=== PATIENT | female | born 1970 | race Caucasian/White ===

== ENCOUNTER → 2017-06-18 | Outpatient (CLI) | payer BC ==
[2015-03-17 09:03] VITALS: BP 104/67
--- NOTE | 2017-06-19 06:03 | RAD ---
Examination: Thoracic spine, AP and lateral views History: Pain in neck and shoulder Findings: Minimal scoliosis. No evidence for fracture, pedicle erosion or paraspinal soft tissue defo rmity. Disc spaces are preserved. Impression: No acute or significant abnormality demonstrated. Reported By:
--- NOTE | 2017-06-19 06:05 | RAD ---
Examination: Cervical spine, five views History: Pain in neck and left shoulder Findings: There is slight degenerative disc narrowing and osteophyte formation at levels below C4. Al ignment of vertebrae is normal. No fracture or bone destruction identified. The odontoid is midline a nd intact. There is slight osteophyte narrowing of the C6-7 foramina. Impression: Mild multilevel degenerative disc disease and spondylosis. Slight degenerative narrowing of C6-7 foramina. No acute component identified. Reported By:
== END ==
LOC: RAD 17:14
PROVIDERS: ATTEND Nurse Practitioner
DX: M54.12 Radiculopathy, cervical region (principal)
CPT/HCPCS: 72050; 72072

== ENCOUNTER 2017-08-05 19:47 | Emergency (ER) | payer BC ==
[2017-08-05 20:01] VITALS: BMI 24.9
--- NOTE | 2017-08-05 21:39 | DR.GENAD ---
HPI - PCP Primary Care Physician: bettina - HPI Comment HPI Comment: PATIENT ALSO HAVE HEADACHE AND POST NASAL DRAINAGE. GETTING WORSE. MEDS TAKING SO FAR NOT HELPING. FEEL WEAK AND DRAIN OF ENERGY. - Complaint/Symptoms Chief Complaint Doctors Comments: COUGH, COLD CONGESTION WITH FEVER TIME ONE WEEK. Chief Complaint:: cough cold congestion Self Treatment fo Chief Complaint: mucinex albuterol q 4 hrs - Nurses notes reviewed Nurses Notes Review: Yes - Source History Provided: Patient - Mode of Arrival Mode of Arrival: Ambulatory - Timing Onset of Chief Complaint: 07/29/17 Came on: Suddenly - Duration Duration: Constant Duration: Days - Severity Severity: Moderate PMH - PMH Past Medical History: Yes Past Medical History: COPD Past Surgical History: Yes Surgical History: , Cholecystectomy, Hysterectomy - Family History History of Family Medical Conditions: Yes Family Medical History: Diabetes Mellitus, Cancer, Coronary Artery Disease - Social History Does patient currently use any type of tobacco product: No Have you used tobacco products in the last 12 months: No Type of Tobacco Use: Cigarettes Does any household member use tobacco: Yes Alcohol Use: None Do you use any recreational Drugs:: No Lives With: Family Lives Where: Home - infectious screening In the last 2 months have you had wt loss of >10#?: NO Have you had fever, night sweats or hemotysis?: No Have you traveled outside the country in the last 6 months?: No Isolation: Standard ROS - Review of Systems Constitutional: Chills, Fever, Weakness, Fatigue Eyes: No Symptoms Reported. negative: Eye Pain ENTM: Nose Congestion. negative: Nose Discharge Respiratoy: Wheezing. negative: Short of Breath Cardiovascular: No Symptoms Reported Gastrointestinal/Abdominal: Abdominal Pain, Constipation, Diarrhea, Nausea, Vomiting Genitourinary: No Symptoms Reported Neurological: Headache Musculoskeletal: Back Pain, Muscle Pain, Chest wall Integumentary: No Symptoms Reported Hematologic/Lymphatic: Easy Bleeding Endocrine: No Symptoms Reported All Other Systems: Reviewed and Negative PE - Vital Signs Vitals: Temperature 98.4 F Pulse Rate [Right Brachial] 72 Pulse Rate 71 Respiratory Rate 18 Blood Pressure [Right Arm] 112/72 Blood Pressure 120/58 O2 Sat by Pulse Oximetry 100 - General Limitations: No Limitations General Appearance: Alert - Head Head Exam: Normal Inspection ( ) - Eyes Eye exam: PERRL, EOMI. negative: Scleral Icterus, Conjunctival Injection - ENT ENT Exam: Normal External Ear Exam. negative: Normal Oropharynx (THROAT RED.) , TM's Normal Bilaterally (TM BULGING) External Ear Exam: Normal External Inspection TM/Canal Exam: Bilateral Bulging Nose Exam: Normal Nose Exam Mouth Exam: Normal Inspection Throat Exam: Tonsillar Erythema - Neck Neck Exam: Trachea Midline - Chest Chest Inspection: Symmetric Chest Wall Rise - Respiratory Respiratory Exam: Normal Lung Sounds Bilat Respiratory Exam: Bilateral Rhonchi, Lower Rhonchi - Cardiovascular Cardiovascular Exam: Regular Rate, Normal Rhythm, Normal Heart Sounds - Abdominal Exam Abdominal Exam: Normal Bowel Sounds, Soft. negative: Tenderness - Extremities Extremities Exam: Normal Inspection - Back Back Exam: Normal Inspection - Neurologic Neurological Exam: Alert, Oriented X3 - Psychiatric Psychiatric Exam: Normal Affect, Normal Mood - Skin Skin Exam: Normal Color MDM - Differential Diagnosis Differential Diagnosis: BRONCHITIS, SINUSITIS, PNEUMONIA Course - Treatment Treatment: IM MEDS IN ED. SEE ORDERS. - Reevaluation 1st: Improved - Education/Counseling Education/Counseling: Patient, Education Educated On: Treatment, Diagnosis, Needs for Follow Up ROR - Labs Reviewed Laboratory Results Reviewed?: Yes Laboratory: Influenza Type A (PCR) Negative (NEGATIVE) 08/05/17 22:15 Influenza Type B (PCR) Negative (NEGATIVE) 08/05/17 22:15 Streptococcus Screen Negative (NEGATIVE) 08/05/17 22:38 - XRAY XRAY Interpreted by: Radiologist XRAY Findings: REPORT DISCUSS WITH PATIENT. - Diagnosis Discharge Problem: Bronchitis Sinusitis Qualifiers: Sinusitis location: unspecified location Chronicity: acute Recurrence: not specified as recurrent Qualified Code(s): J01.90 - Acute sinusitis, unspecified - Discharge Plan Disposition: 01 HOME, SELF-CARE Condition: Stable Prescriptions: Acetaminophen with Codeine [Tylenol/Codeine #3 300-30 mg] 1 tab PO Q8H PRN #15 tab PRN Reason: Pain Amoxicillin [Amoxil 875 mg] 875 mg PO Q12H #20 tab Cetirizine HCl [Zyrtec Tab 10 mg] 10 mg PO DAILY #30 tab - Follow ups/Referrals Follow ups/Referrals: Bettina Barreto [Primary Care Provider] - 3 days - Instructions Instructions: Sinusitis, Adult, [id number], Acute Bronchitis, [id number] Additional Instructions: RETURN TO ED IF WORSE.
--- NOTE | 2017-08-05 21:45 | RAD ---
CHEST RADIOGRAPHS PA AND LATERAL VIEWS CLINICAL HISTORY: 47-year-old female with cough. COMPARISON: Chest radiographs 08/21/2016. FINDINGS: The cardiopericardial silhouette is normal. There is no focal consolidation, pleural effus ion or pneumothorax. The lungs are well inflated. Pulmonary vascularity is normal. Imaged osseous str uctures are intact. Soft tissues are unremarkable. IMPRESSION: No acute cardiopulmonary process. Reported By:
[2017-08-05] MEDS ORDERED: ROCEPHIN VIAL 1 GM IM ONE (22:46)
[2017-08-05] MEDS ORDERED: TORADOL 60 MG VIAL IM ONE (22:47)
[2017-08-05] MEDS ORDERED: TORADOL 60 MG VIAL ONE (23:02)
[2017-08-05] MEDS ORDERED: ROCEPHIN VIAL 1 GM ONE (23:02)
[2017-08-05] MEDS ORDERED: XYLOCAINE 1 % (PLAIN) ONE (23:03)
[2017-08-05 23:37] VITALS: BP 112/72
== END 2017-08-05 23:37 | disposition home or self-care (01) ==
LOC: ER 20:05
DX: J40 Bronchitis, not specified as acute or chronic (principal); J01.80 Other acute sinusitis
CPT/HCPCS: 71046; 87070; 87502; 87880; 96372; 99282; 99283; J0696; J1885; J2001

== ENCOUNTER → 2017-08-09 | Outpatient (CLI) | payer BC ==
[2017-08-05 23:37] VITALS: BP 112/72
== END ==
LOC: LAB 09:49
PROVIDERS: ATTEND Psychiatry & Neurology Neurology
DX: J32.9 Chronic sinusitis, unspecified (principal)
CPT/HCPCS: 87070; 87205

== ENCOUNTER → 2017-08-20 | Outpatient (CLI) | payer BC ==
[2017-08-05 23:37] VITALS: BP 112/72
--- NOTE | 2017-08-21 07:47 | RAD ---
HISTORY: Chronic sinusitis Study: Sinuses AP, lateral, water's Comparison: None Findings: The frontal, ethmoid, sphenoid, and maxillary sinuses are clear. IMPRESSION: Clear paranasal sinuses in Reported By:
--- NOTE | 2017-08-21 07:47 | RAD ---
HISTORY: Otalgia Study: Mastoids, exaggerated [place], obliques Comparison: None Findings: The mastoid air cells appear clear. IMPRESSION: Clear mastoid air cells Reported By:
== END ==
LOC: RAD 17:23
PROVIDERS: ATTEND Psychiatry & Neurology Neurology
DX: J32.9 Chronic sinusitis, unspecified (principal); H92.01 Otalgia, right ear
CPT/HCPCS: 70120; 70220